=== PATIENT | female | born 1950 | race Caucasian/White ===

== ENCOUNTER 2017-09-30 14:16 | Outpatient (CLI) | payer MEDICARE ==
[2017-09-30 16:54] LABS: Anion Gap 15 mmol/L (10-20); BUN (Urea Nitrogen) 13 mg/dL (9.8-20.1); Calc. Creatinine Clearance 0 mL/min (70-130); Calcium 9.8 mg/dL (7.8-10.44); Carbon Dioxide 22 mmol/L (23-31); Chloride 96 mmol/L (98-107); Estimated GFR-MDRD 73; Glucose 85 mg/dL (80-115); Potassium 3.2 mmol/L (3.5-5.1); Sodium 130 mmol/L (136-145)
[2017-09-30 17:13] LABS: Band 12 % (5-11); Hemoglobin 14.7 g/dL (12.0-16.0); Lymphocytes 21 % (21-51); MDiff Complete? YES; Mean Corpuscular HGB CONC 35.4 g/dL (32.0-36.0); Mean Corpuscular Hemoglobin 32.4 pg (27.0-31.0); Mean Corpuscular Volume 91.5 fL (78.0-98.0); Mean Platelet Volume 7.9 fL (7.4-10.4); Monocytes 13 % (0-10); Neutrophil 52 % (42-75); PLT Morphology Comment Appears Adequate; Platelet Count 353 thou/uL (130-400); RBC Distribution Width 12.2 % (11.5-14.5); Reactive Lymphocytes 2 % (0-10); Red Blood Cell (RBC) Count 4.54 mill/uL (4.20-5.40); White Blood Cell (WBC) Count 6.7 thou/uL (4.8-10.8)
--- NOTE | 2017-10-01 13:42 | EKG ---
Test Reason : Blood Pressure : / mmHG Vent. Rate : 083 BPM Atrial Rate : 083 BPM P-R Int : 186 ms QRS Dur : 138 ms QT Int : 390 ms P-R-T Axes : 074 -72 088 degrees QTc Int : 458 ms Normal sinus rhythm Right bundle branch block Left anterior fascicular block Bifascicular block Left ventricular hypertrophy with QRS widening and repolarization abnormality Cannot rule out Septal infarct , age undetermined Abnormal ECG No previous ECGs available Confirmed by TANESHA GAMA ([id number]) on 10/01/2017 1:42:22 PM Referred By: ZEHRA Confirmed By:TANESHA GAMA
== END 2017-09-30 14:17 | disposition home or self-care (01) ==
LOC: LABBT 14:16
PROVIDERS: ATTEND Orthopaedic Surgery
DX: Z01.818 Encounter for other preprocedural examination (principal); M23.41 Loose body in knee, right knee
CPT/HCPCS: 80048; 85025; 93005; 93010

== ENCOUNTER 2017-10-01 05:48 | Day surgery (SDC) | payer MEDICARE ==
[2017-09-30 13:49] VITALS: BMI 41.3
[2017-10-01] MEDS ORDERED: PROPOFOL 20 ML ONE (06:39)
[2017-10-01] MEDS ORDERED: CEFAZOLIN/Water 2 GM/20 ML SYRINGE ONE (07:10)
[2017-10-01] MEDS ORDERED: Fentanyl 100 MCG/2 ML VIAL ONE ×4 (08:04→10:13)
[2017-10-01] MEDS ORDERED: Bupivacaine/Epinephrine 0.25% 30 ML VIAL ONE (08:40)
[2017-10-01] MEDS ORDERED: Lidocaine 2% w/Epinephrine 1:200K 20 ML VIAL ONE (13:10)
[2017-10-01] MEDS ORDERED: Bupivacaine HCl 0.5%/Epinephrine 1:200,000/PF 30 ml Vial ONE (13:10)
[2017-10-01] MEDS ORDERED: Dexamethasone 20 MG/5 ML VIAL ONE (14:49)
[2017-10-01] MEDS ORDERED: PROPOFOL 200 MG/20 ML VIAL ONE (14:49)
[2017-10-01] MEDS ORDERED: Ondansetron HCl/PF 4 MG/2 ML Vial ONE (14:49)
--- NOTE | 2017-10-01 16:57 | OP ---
DATE OF PROCEDURE: 10/01/2017 PREOPERATIVE DIAGNOSIS: Right knee medial and lateral meniscus tears, but more importantly multiple large loose bodies noted in the suprapatellar pouch. POSTOPERATIVE DIAGNOSIS: Right knee medial and lateral meniscus tears, but more importantly multiple large loose bodies noted in the suprapatellar pouch. PROCEDURE PERFORMED: 1. Right knee arthroscopy with partial medial and lateral meniscectomies. 2. Conversion of arthroscopy to open arthrotomy for removal of multiple large bony loose bodies. SURGEON: Jesus Ramirez M.D. TOOL GRINDER: Germain Teran PA-C. BLOOD LOSS: Minimal. COMPLICATIONS: None. ANESTHESIA: She did have a general anesthetic as well as a local knee block. DISPOSITION: She went to recovery room in stable condition. INDICATIONS: A 67-year-old female, came in to the office complaining of significant pain and catchin g. It has been worsening over time and x-rays were taken that showed her to overall have good alignm ent in the femoral tibial joint with some mild narrowing, but more importantly, she had multiple visi ble loose bodies ranging from small to large in the suprapatellar pouch. At this time, she wished to have debridement and removal of these rather than moving to total knee replacement. PROCEDURE IN DETAIL: After all appropriate consent forms were explained and signed, Jania was take n back to operating room and at this time was given general anesthetic. Once anesthesia was appropri ate, the tourniquet was placed on her right leg and the leg was then placed in arthroscopic leg holde r. The limb was then prepped and draped in standard surgical fashion. Limb was exsanguinated and th e tourniquet was taken to 300 mmHg. An inferolateral portal was established and the scope was placed into the knee joint. A needle localization technique was then used to make a medial working portal. Diagnostic arthroscopy commenced in the notch. ACL and PCL were visible, found to be intact and me dially, there was a large bony loose body noted at the base of the ACL and this was removed. We then turned our attention to the medial compartment. There was a degenerative tear in the very posterior horn of the medial meniscus. Partial meniscectomy was performed with the meniscal biter and shaver. There were some changes on the end of the femur, large area of grade 2 and some small areas of grad e 3. Tibial plateau overall was in pretty good condition. The lateral compartment was then entered. There was a pretty large degenerative tear including the entire posterior horn and body of the late ral meniscus. Partial meniscectomy again was performed back to a stable base using meniscal biter an d shaver. Overall, the femur and tibia were in pretty good condition. We then tried to sweep off th rough the gutters, but we were stopped as we met large bony loose bodies. These really were so large that I could not position the arthroscope into the suprapatellar pouch to adequately remove these. At this time, we did take a christie and removed the distal tip/osteophyte of the patella and once this w as taken down to the appropriate position, I then removed the scope and drained the knee and performe d an open arthrotomy. Medial arthrotomy was first performed cutting down through skin. Bovie was us ed to clear any brisk venous bleeding. Since this arthrotomy was basically an elongation of a portal , once we got down to the deeper tissues and VMO, the fascia was opened, so it could later be repaire d. We then went down through the VMO musculature to the underlying large bony loose body. This was freed up and removed and this first large bony loose body was nearly 2 inches, maybe a little bit martin spenser even in length and at least an inch in width. There were multiple smaller bony loose bodies joshua karen. There was then one more larger medial distal osteophyte that was removed. Once all the medial osteophytes have been removed and no longer could be palpated or visualized, suprapatellar pouch was felt to be clean, but there was a large palpable bony osteophyte laterally. There was no way I could do this from this medial portal. Thus, a hemostat was passed underneath to put some pressure on the skin. I then made a lateral arthrotomy with a 10 blade, cutting down through skin, then the Bovie w as used to coagulate any brisk venous bleeding. We then incised the deep fascia/lateral retinaculum t o gain access to our large lateral bony loose body. Again, this was nearly 2 inches in length and ab out 3/4 of an inch in width. There was one smaller osteophyte still noted distal to this and this wa s removed as well. Once this was done, the kneecap sat nicely in the trochlear groove. I cannot pal chandra any more loose bodies medial or lateral. We then thoroughly irrigated through the lateral incis ion, the medial incision and also through our portals irrigating superiorly just to make sure we did not cut and flush any more loose bodies out of the knee. At this time, we then carefully closed in m ultiple layers using a large Vicryl deep, followed by 2-0 Vicryl and surgical michael to close the sk in. Each portal was closed with a staple and I then took some local and injected around all of our i ncision sites for postop pain relief. A bulky sterile dressing was applied and the tourniquet was le t down. The patient's toes pinked up nicely. She was awakened and taken to the recovery room in sta ble condition. All counts were correct at the end of the case and she did receive preoperative IV an tibiotics.
== END 2017-10-01 11:40 | disposition home or self-care (01) ==
LOC: SDC 05:48
PROVIDERS: ATTEND Orthopaedic Surgery
PROC: 0SBC4ZZ Excision of Right Knee Joint, Percutaneous Endoscopic Approach (ICD-10-PCS; principal; 2017-10-01)
PROC: 0SBC4ZZ Excision of Right Knee Joint, Percutaneous Endoscopic Approach (ICD-10-PCS; 2017-10-01)
PROC: 0SCC0ZZ Extirpation of Matter from Right Knee Joint, Open Approach (ICD-10-PCS; 2017-10-01)
DX: M23.41 Loose body in knee, right knee (principal); S83.241A Other tear of medial meniscus, current injury, right knee, initial encounter; S83.281A Other tear of lateral meniscus, current injury, right knee, initial encounter; M25.761 Osteophyte, right knee; Z79.84 Long term (current) use of oral hypoglycemic drugs; Z79.899 Other long term (current) drug therapy; Z88.6 Allergy status to analgesic agent; Z98.890 Other specified postprocedural states
CPT/HCPCS: 27331; 29880; 96374; 97116; 97139; G8978; G8979; G8980; 80048; 85025; 93005; 93010; J0670; J1100; J2405; J2704; J3010